=== PATIENT | male | born 1985 | race African-American/Black ===

== ENCOUNTER 2024-07-09 22:12 | Emergency (ER) | payer SELFPAY | END 2024-07-10 03:10 | disposition left against medical advice (07) | LOC: ER 22:23 | DX: S01.21XA Laceration without foreign body of nose, initial encounter (principal); Z53.21 Procedure and treatment not carried out due to patient leaving prior to being seen by health care provider; X58.XXXA Exposure to other specified factors, initial encounter; Y93.89 Activity, other specified; Y92.89 Other specified places as the place of occurrence of the external cause; Y99.8 Other external cause status ==